=== PATIENT | female | born 1995 | race African-American/Black ===

== ENCOUNTER 2017-11-14 15:41 | Emergency (ER) | payer OTHER ==
[~2017-11-14] VITALS: Ht 152.4 cm; Wt 72.6 kg
[2017-11-14] MEDS ORDERED: DIPHENHYDRAMINE HCL INJ 50 MG/ML VIAL IM ONE (16:00)
[2017-11-14] MEDS ORDERED: METOCLOPRAMIDE HCL 10 MG/2ML VIAL IM ONE (16:00)
[2017-11-14] MEDS ORDERED: KETOROLAC TROMETHAMINE 30 MG/ML VIAL IM STA (16:00)
[2017-11-14 17:05] VITALS: BP 109/84
== END 2017-11-14 17:36 | disposition home or self-care (01) ==
LOC: FSED 15:41
DX: G43.909 Migraine, unspecified, not intractable, without status migrainosus (principal)
CPT/HCPCS: 99282; J1200; J1885; J2765

== ENCOUNTER 2018-10-11 19:48 | Emergency (ER) | payer OTHER ==
[~2018-10-11] VITALS: Ht 154.9 cm; Wt 75.3 kg
--- OUTSIDE RECORDS SUMMARY | 2018-10-11 19:50 | XMS REPORT | Clinical Summary ---
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 Nitrofurantoin Other (See 02/08/2014 Monohyd/M-Cryst Comments) Nsaids (Non-Steroidal Anaphylaxis High 05/31/2016 Anti-Inflammatory Drug) Medications End Date Status Medication Sig Dispensed Refills Start Date Active albuterol sulfate Take 2.5 mg 0 (PROVENTIL) 2.5 mg/0.5 mL by solution for nebulization nebulization as needed for wheezing. Active albuterol (PROAIR Inhale 2 0 HFA,PROVENTIL puffs every 6 HFA,VENTOLIN HFA) 90 (six) hours mcg/actuation inhaler as needed for wheezing. Active cefuroxime (CEFTIN) 500 Take 500 mg 0 MG tablet by mouth 2 8 (two) times a day. 10/26/2017 predniSONE (DELTASONE) 10 Take 4 20 tablet 0 mg tablet tablets (40 8 mg total) by mouth daily for 5 doses. 11/20/2017 albuterol (PROAIR HFA) 90 Inhale 2 18 g 11 mcg/actuation inhaler puffs every 6 8 (six) hours as needed for wheezing for up to 30 days. 12/27/2017 traMADol (ULTRAM) 50 mg Take 1 tablet 30 tablet 0 tablet (50 mg total) 8 by mouth every 6 (six) hours as needed for moderate pain for up to 5 days. 04/04/2018 fluconazole (DIFLUCAN) Take 1 tablet 2 tablet 0 200 MG tablet (200 mg 8 total) by mouth every third day for 2 doses. Active Problems Not on file Encounters Care Team Description Date Type Specialty Rehrer, aMrcio Armijo DO Yeast vaginitis (Primary Dx) 03/31/2018 Emergency Emergency Medicine Luiz Baltazar MD Left lower quadrant pain (Primary Dx); Cyst of left ovary 12/21/2017 Emergency Emergency Medicine - 12/22/2017 Luiz Baltazar MD Streptococcal pharyngitis (Primary Dx); Fever and chills; Cough 10/21/2017 Emergency Emergency Medicine after 10/10/2017 Social History Date Tobacco Use Types Packs/Day Years Used Never Smoker Smokeless Tobacco: Never Used Alcohol Use Drinks/Week oz/Week Comments Yes occassionally Sex Assigned at Date Recorded Not on file Industry Job Start Date Occupation Not on file Not on file Not on file Travel End Travel History Travel Start No recent travel history available. Last Filed Vital Signs Time Taken Vital Sign Reading 03/31/2018 1:10 PM VARITYPE OPERATOR Blood Pressure 128/80 03/31/2018 1:10 PM VARITYPE OPERATOR Pulse 90 03/31/2018 1:10 PM VARITYPE OPERATOR Temperature 37.2 C (98.9 F) 03/31/2018 1:10 PM VARITYPE OPERATOR Respiratory Rate 18 03/31/2018 1:10 PM VARITYPE OPERATOR Oxygen Saturation 98% - Inhaled Oxygen - Concentration 03/31/2018 1:18 PM VARITYPE OPERATOR Weight 70.3 kg (155 lb) 03/31/2018 1:18 PM VARITYPE OPERATOR Height 152.4 cm (5') 03/31/2018 1:18 PM VARITYPE OPERATOR Body Mass Index 30.27 Plan of Treatment Health Maintenance Due Date Last Done Comments CHLAMYDIA SCREENING 2010 INFLUENZA VACCINE 11/16/2018 03/23/2013 Procedures Comments Procedure Name Priority Date/Time Associated Diagnosis HCG QUALITATIVE, URINE STAT 03/31/2018 SCREEN 1:33 PM VARITYPE OPERATOR URINALYSIS STAT 03/31/2018 1:[address] RENAL STONE PROTOCOL STAT 12/22/2017 1:06 AM CDT US PELVIC TRANSABDOMINAL STAT 12/22/2017 12:05 AM CDT US PELVIC TRANSVAGINAL STAT 12/22/2017 12:05 AM CDT ZZESTIMATED GFR STAT 12/21/2017 10:49 PM CDT COMPREHENSIVE METABOLIC STAT 12/21/2017 PANEL 10:49 PM CDT HC COMPLETE BLD COUNT STAT 12/21/2017 W/AUTO DIFF 10:49 PM CDT HCG QUALITATIVE, URINE STAT 12/21/2017 SCREEN 10:30 PM CDT URINALYSIS STAT 12/21/2017 10:30 PM CDT RESPIRATORY PATHOGEN Routine 10/21/2017 PANEL 7:50 PM CDT GROUP A STREP, RAPID Routine 10/21/2017 ANTIGEN 7:50 PM CDT INFLUENZA ANTIGEN Routine 10/21/2017 7:50 PM CDT XR CHEST 2 VW STAT 10/21/2017 7:48 PM CDT after 10/10/2017 Results * Urinalysis (03/31/2018 1:33 PM VARITYPE OPERATOR) Only the most recent of 2 results within the time period is included. Glucose, UA Negative Negative [facility] Bilirubin, UA Negative Negative [facility] Ketones, UA Trace (A) Negative [facility] Specific 1.020 1.001 - 1.035 [place] gravity, UA [facility] Blood, UA Negative Negative [facility] pH, UA 7.0 5.0 - 8.5 [facility] Protein, UA Negative Negative [facility] Urobilinogen, <2.0 <2.0 [place] UA [facility] Nitrite, UA Negative Negative [facility] Leukocyte Negative Negative [place] esterase, UA [facility] Color, UA Yellow [facility] Appearance, UA Hazy [facility] Specimen Urine Performing Organization Address City/State/[place] [address] PATHOLOGY AND GENOMIC MEDICINE[address] * hCG qualitative, urine screen (03/31/2018 1:33 PM VARITYPE OPERATOR) Only the most recent of 2 results within the time period is included. hCG Negative [place] qualitative, Comment: [facility] urine Sensitivity of HCG test: 25 [place] mIU/mL EMERGENCY CARE Negative test results in CENTER patients suspected to be should be retested with a sample obtained 48-72 hours later, or by performing a quantitative assay. Specimen Urine Performing Organization Address City/[facility] Hospital[facility] [place] [address] PATHOLOGY AND GENOMIC MEDICINE[address] * CT Renal Stone Protocol (12/22/2017 1:06 AM CDT) Specimen Narrative Performed At EXAM: CT RENAL STONE PROTOCOL [facility] CLINICAL HISTORY:Abd painunspecified TECHNIQUE: Multidetector CT of the abdomen and pelvis was performed without intravenous administration of iodinated contrast with multiplanar reformats. CT scans are performed using radiation dose reduction techniques (iterative reconstruction and/or automated exposure control). Technical factors are evaluated and adjusted to ensure appropriate moderation of exposure. Automated dose management technology is applied to adjust radiation exposure while achieving a diagnostic quality image. COMPARISON:None FINDINGS: Evaluation of the parenchyma, lymph nodes, and the vessels is limited without intravenous contrast. Lung bases: Dependent atelectasis. Otherwise unremarkable. Liver:No evidence for suspicious focal hepatic lesion. Gallbladder and biliary:Unremarkable. Pancreas:No focal pancreatic lesion identified. No pancreatic duct dilatation. Spleen: Unremarkable. Gastrointestinal:Stomach is unremarkable in appearance. Large and small bowel are normal in caliber. Appendix is visualized and appears normal. Peritoneum:No ascites or free air. Adrenals: Unremarkable. Kidneys and ureters:There is no evidence for large irregular renal mass, obstructing calculi, hydronephrosis, or hydroureter. Urinary bladder: Unremarkable. Reproductive organs:Uterus is unremarkable in appearance per CT. Bilateral ovarian cysts are identified, larger on the left (for example question very measuring 3.6 cm in transverse dimension on axial image 128, series 2). Lymph nodes:No enlarged lymph nodes in the abdomen or pelvis. Vascular:Unremarkable, though evaluation of vessel lumens is limited due to lack of IV contrast. Abdominal wall:Unremarkable. Bones:No acute osseous abnormality identified. IMPRESSION: 1.No CT evidence for acute abdominopelvic process. 2.Bilateral ovarian cysts are identified, larger on the left (for example question very measuring 3.6 cm in transverse dimension on axial image 128, series 2). Ultrasound of the pelvis may be obtained for further evaluation if clinically indicated. [id number] Procedure Note [facility], Radiology Results Incoming - 12/22/2017 1:18 AM CDT EXAM: CT RENAL STONE PROTOCOL CLINICAL HISTORY: Abd pain unspecified TECHNIQUE: Multidetector CT of the abdomen and pelvis was performed without intravenous administration of iodinated contrast with multiplanar reformats. CT scans are performed using radiation dose reduction techniques (iterative reconstruction and/or automated exposure control). Technical factors are evaluated and adjusted to ensure appropriate moderation of exposure. Automated dose management technology is applied to adjust radiation exposure while achieving a diagnostic quality image. COMPARISON: None FINDINGS: Evaluation of the parenchyma, lymph nodes, and the vessels is limited without intravenous contrast. Lung bases: Dependent atelectasis. Otherwise unremarkable. Liver: No evidence for suspicious focal hepatic lesion. Gallbladder and biliary: Unremarkable. Pancreas: No focal pancreatic lesion identified. No pancreatic duct dilatation. Spleen: Unremarkable. Gastrointestinal: Stomach is unremarkable in appearance. Large and small bowel are normal in caliber. Appendix is visualized and appears normal. Peritoneum: No ascites or free air. Adrenals: Unremarkable. Kidneys and ureters: There is no evidence for large irregular renal mass, obstructing calculi, hydronephrosis, or hydroureter. Urinary bladder: Unremarkable. Reproductive organs: Uterus is unremarkable in appearance per CT. Bilateral ovarian cysts are identified, larger on the left (for example question very measuring 3.6 cm in transverse dimension on axial image 128, series 2). Lymph nodes: No enlarged lymph nodes in the abdomen or pelvis. Vascular: Unremarkable, though evaluation of vessel lumens is limited due to lack of IV contrast. Abdominal wall: Unremarkable. Bones: No acute osseous abnormality identified. IMPRESSION: 1. No CT evidence for acute abdominopelvic process. 2. Bilateral ovarian cysts are identified, larger on the left (for example question very measuring 3.6 cm in transverse dimension on axial image 128, series 2). Ultrasound of the pelvis may be obtained for further evaluation if clinically indicated. [id number] Performing Organization Address City/State/Zipcode Phone Number [facility] [address] [place] [address] * US Pelvic Transabdominal (12/22/2017 12:05 AM CDT) Specimen Narrative Performed At Examination:US PELVIC TRANSABDOMINAL, US PELVIC TRANSVAGINAL [facility] Clinical History: Pelvic painneg HCGgyn Comparison: None. Findings: Transabdominal and transvaginal pelvic ultrasound was performed. The uterus measures 8.0 x 3.8 x 4.5 cm Endometrial stripe measure 1.1 cm. No fibroid is seen. The right ovary measures 2.5 x 1.2 x 1.6 cm. Left ovary measured 4.5 x 3.3 x 4.0 cm. Left ovary demonstrate a cystic structure measuring 2.7 x 2.3 x 2.1 cm. It has septations within it. There is normal vascular flow seen in both ovaries. Nonspecific free fluid is noted in the pelvis. IMPRESSION: 1. No evidence of torsion. 2. Left ovarian cyst with septation. 3. Nonspecific free fluid in the pelvis. 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 Findings: Transabdominal and transvaginal pelvic ultrasound was performed. The uterus measures 8.0 x 3.8 x 4.5 cm Endometrial stripe measure 1.1 cm. No fibroid is seen. The right ovary measures 2.5 x 1.2 x 1.6 cm. Left ovary measured 4.5 x 3.3 x 4.0 cm. Left ovary demonstrate a cystic structure measuring 2.7 x 2.3 x 2.1 cm. It has septations within it. There is normal vascular flow seen in both ovaries. Nonspecific free fluid is noted in the pelvis. IMPRESSION: 1. No evidence of torsion. 2. Left ovarian cyst with septation. 3. Nonspecific free fluid in the pelvis. [id number] Performing Organization Address City/State/Zipcode Phone Number [facility] [address] [place] [address] * US Pelvic Transvaginal (12/22/2017 12:05 AM CDT) Specimen Narrative Performed At Examination:US PELVIC TRANSABDOMINAL, US PELVIC TRANSVAGINAL [facility] Clinical History: Pelvic painneg HCGgyn Comparison: None. Findings: Transabdominal and transvaginal pelvic ultrasound was performed. The uterus measures 8.0 x 3.8 x 4.5 cm Endometrial stripe measure 1.1 cm. No fibroid is seen. The right ovary measures 2.5 x 1.2 x 1.6 cm. Left ovary measured 4.5 x 3.3 x 4.0 cm. Left ovary demonstrate a cystic structure measuring 2.7 x 2.3 x 2.1 cm. It has septations within it. There is normal vascular flow seen in both ovaries. Nonspecific free fluid is noted in the pelvis. IMPRESSION: 1. No evidence of torsion. 2. Left ovarian cyst with septation. 3. Nonspecific free fluid in the pelvis. 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 Findings: Transabdominal and transvaginal pelvic ultrasound was performed. The uterus measures 8.0 x 3.8 x 4.5 cm Endometrial stripe measure 1.1 cm. No fibroid is seen. The right ovary measures 2.5 x 1.2 x 1.6 cm. Left ovary measured 4.5 x 3.3 x 4.0 cm. Left ovary demonstrate a cystic structure measuring 2.7 x 2.3 x 2.1 cm. It has septations within it. There is normal vascular flow seen in both ovaries. Nonspecific free fluid is noted in the pelvis. IMPRESSION: 1. No evidence of torsion. 2. Left ovarian cyst with septation. 3. Nonspecific free fluid in the pelvis. [id number] Performing Organization Address City/State/Zipcode Phone Number [facility] [address] [place] [address] * Estimated GFR (12/21/2017 10:49 PM CDT) [facility] GFR Non Af Amer 61 mL/min/1.73 m2 DEPARTMENT OF PATHOLOGY AND GENOMIC MEDICINE, [facility] GFR Af Amer 74 mL/min/1.73 m2 DEPARTMENT Comment: OF PATHOLOGY Chronic kidney disease: <60 AND GENOMIC mL/min/1.73m2 MEDICINE, Kidney failure: <15 [place] mL/min/1.73m2 EMERGENCY CARE The estimated GFR is CENTER calculated from the IDMS-traceable Modification of Diet in Renal Disease Equation. The accuracy of the calculation is poor when the creatinine is normal. Calculated values >90 mL/min/1.73m2 are not reported. This equation has not been validated in children (<18 years), women, the elderly (>70 years), or ethnic groups other than Caucasians and Americans. Specimen Plasma specimen Performing Organization Address City/[facility]/Zipcode Phone Number [address] [address] [facility] * CBC with platelet and differential (12/21/2017 10:49 PM CDT) [facility] WBC 13.64 (H) 4.50 - 11.00 k/uL [facility] DEPARTMENT OF PATHOLOGY AND GENOMIC MEDICINE RBC 4.72 4.20 - 5.50 m/uL [facility] DEPARTMENT OF PATHOLOGY AND GENOMIC MEDICINE HGB 13.3 12.0 - 16.0 g/dL [facility] DEPARTMENT OF PATHOLOGY AND GENOMIC MEDICINE HCT 40.3 37.0 - 47.0 % [facility] DEPARTMENT OF PATHOLOGY AND GENOMIC MEDICINE MCV 85.4 82.0 - 100.0 fL [facility] DEPARTMENT OF PATHOLOGY AND GENOMIC MEDICINE MCH 28.2 27.0 - 34.0 pg [facility] DEPARTMENT OF PATHOLOGY AND GENOMIC MEDICINE MCHC 33.0 31.0 - 37.0 g/dL [facility] DEPARTMENT OF PATHOLOGY AND GENOMIC MEDICINE RDW - SD 40.3 37.0 - 55.0 fL [facility] DEPARTMENT OF PATHOLOGY AND GENOMIC MEDICINE MPV 11.3 8.8 - 13.2 fL [facility] DEPARTMENT OF PATHOLOGY AND GENOMIC MEDICINE Platelet count 215 150 - 400 k/uL [facility] DEPARTMENT OF PATHOLOGY AND GENOMIC MEDICINE Neutrophils 62.8 39.0 - 69.0 % [facility] DEPARTMENT OF PATHOLOGY AND GENOMIC MEDICINE Lymphocytes 26.4 25.0 - 45.0 % [facility] DEPARTMENT OF PATHOLOGY AND GENOMIC MEDICINE Monocytes 7.8 0.0 - 10.0 % [facility] DEPARTMENT OF PATHOLOGY AND GENOMIC MEDICINE Eosinophils 2.5 0.0 - 5.0 % [facility] DEPARTMENT OF PATHOLOGY AND GENOMIC MEDICINE Basophils 0.3 0.0 - 1.0 % [facility] DEPARTMENT OF PATHOLOGY AND GENOMIC MEDICINE Specimen Blood Performing Organization Address City/State/Zipcode Phone Number [facility] DEPARTMENT [address] [address] PATHOLOGY AND GENOMIC MEDICINE * Comprehensive metabolic panel (12/21/2017 10:49 PM CDT) Sodium 139 128 - 145 mEq/L [facility] Potassium 4.0 3.6 - 5.1 mEq/L [facility] CO2 28 18 - 33 mEq/L [facility] Chloride 104 98 - 108 mEq/L [facility] Glucose 90 73 - 118 mg/dL [facility] Calcium 9.4 8.0 - 10.3 mg/dL [facility] BUN 12 7 - 22 mg/dL [facility] Creatinine 1.1 0.6 - 1.2 mg/dL [facility] Alkaline 48 42 - 141 U/L DEPARTMENT phosphatase [facility] ALT 21 10 - 47 U/L [facility] AST 30 11 - 38 U/L [facility] Total bilirubin 0.8 0.2 - 1.6 mg/dL [facility] Albumin 3.9 3.3 - 5.5 g/dL [facility] Protein 7.2 6.4 - 8.1 g/dL DEPARTMENT OF PATHOLOGY AND GENOMIC MEDICINE, [facility] Anion gap 7@ANIO 7 - 15 mEq/L [facility] A/G ratio 1.2 0.7 - 3.8 [facility] Specimen Plasma specimen Performing Organization Address City/State/Zipcode Phone [place] [phone] [place] [phone] [facility] * Respiratory pathogen panel (10/21/2017 7:50 PM CDT) Pathologist [facility] Respiratory Negative for all pathogens [facility] DEPARTMENT pathogen panel tested: OF PATHOLOGY Negative for Adenovirus AND GENOMIC Negative for Coronavirus HKU1 MEDICINE Negative for Coronavirus NL63 Negative for Coronavirus 229E Negative for Coronavirus OC43 Negative for Human Metapneumovirus Negative for Rhinovirus/Enterovirus Negative for Influenza A Negative for Influenza A/H1 Negative for Influenza A/H3 Negative for Influenza A/H1-2009 Negative for Influenza B Negative for Parainfluenza Virus 1 Negative for Parainfluenza Virus 2 Negative for Parainfluenza Virus 3 Negative for Parainfluenza Virus 4 Negative for Respiratory Syncytial Virus Negative for Bordetella pertussis Negative for Chlamydophila pneumoniae Negative for Mycoplasma pneumoniae This real-time PCR assay detects the presence of nucleic acids (RNA or DNA) for the respiratory pathogens listed. A result of "Not-detected" does not exclude the possibility of the presence of one or more pathogens at concentrations less than the detectable limits of the assay. Comment: Specimen Information Specimen Source: Nares Specimen Site: Left Specimen Nares - Left Performing Organization Address City/State/Zipcode Phone Number [facility] DEPARTMENT OF [address] [place] [phone] PATHOLOGY AND [facility] MEDICINE * Group A strep, rapid antigen (10/21/2017 7:50 PM CDT) [facility] Group A strep, Positive for Group A Strep DEPARTMENT rapid antigen antigen. (A) OF PATHOLOGY result Comment: AND GENOMIC Specimen Information MEDICINE, Specimen Source: Throat [place] Specimen Site: Not otherwise EMERGENCY CARE specified CENTER Specimen Throat - Not otherwise specified Performing Organization Address City/State/Zipcode Phone Number [place] [phone] [place] [phone] [facility] * Influenza antigen (10/21/2017 7:50 PM CDT) Influenza Negative for Influenza A/B DEPARTMENT antigen antigen. OF PATHOLOGY Comment: AND GENOMIC Specimen Information MEDICINE, Specimen Source: [place] Specimen Site: Left EMERGENCY CARE CENTER Specimen Nares - Left Performing Organization Address City/State/[place] Number [place] [address] [place] [address] PATHOLOGY AND GENOMIC MEDICINE, [place] EM[facility] * XR Chest 2 Vw (10/21/2017 7:48 PM CDT) Specimen Narrative Performed At Study:XR CHEST 2 VW [facility] History: Cough COMPARISON: None. IMPRESSION: 2 views of the chest.There is no focal consolidation, pleural effusion or pneumothorax.Cardiac silhouette is normal.Visualized osseous structures arewithout acute abnormality. [id number] Procedure Note Hm Interface, Radiology Results Incoming - 10/21/2017 7:54 PM CDT Study:XR CHEST 2 VW History: Cough COMPARISON: None. IMPRESSION: 2 views of the chest. There is no focal consolidation, pleural effusion or pneumothorax. Cardiac silhouette is normal. Visualized osseous structures are without acute abnormality. [id number] Performing Organization Address City/State/Zipcode Phone Number [facility] [address] [place] [address] after 10/10/2017 Insurance Type Payer Benefit Subscriber ID Effective Phone Address Plan / Dates Group Exchange [employer] EXCHANGE CAR[employer]HO xxxxxxxxxx 2017-P [employer] resent E EXCHANGE Exchange [employer] EXCHANGE CAR[employer] xxxxxxxxxx 2016-P [employer] resent E EXCHANGE Advance Directives Patient has advance care planning documents on file. For more information, pleas e contact: Carlos Bradshaw [address] [place] [address]
--- OUTSIDE RECORDS SUMMARY | 2018-10-11 19:51 | XMS REPORT | Clinical Summary ---
Author Author KATHY [facility] Address Unknown Phone Unavailable Care Team Providers Care Cna Hha Name Role Phone Sharpless PCP Allergies Comments Active Allergy Reactions Severity Noted Date Iodine And Iodide Anaphylaxis High 03/21/2013 Containing Products States won't take it because she read that it had something she is allergic to. Nitrofurantoin Other (See 02/08/2014 Monohyd/M-Cryst Comments) Nsaids (Non-Steroidal Anaphylaxis High 03/21/2013 Anti-Inflammatory Drug) Medications End Date Status Medication Sig Dispensed Refills Start Date 10/17/2017 ciprofloxacin HCl (CIPRO) Take 1 tablet 14 tablet 0 500 MG tablet (500 mg 8 total) by mouth 2 (two) times daily for 7 days. Active Problems Not on file Encounters Care Team Description Date Type Specialty Brandy Singh MD Acute UTI (urinary tract infection) (Primary Dx) 10/10/2017 Emergency Emergency Medicine after 10/10/2017 Social History Date Tobacco Use Types Packs/Day Years Used Never Smoker Smokeless Tobacco: Never Used Alcohol Use Drinks/Week oz/Week Comments Yes socially Sex Assigned at Date Recorded Not on file Industry Job Start Date Occupation Not on file Not on file Not on file Travel End Travel History Travel Start No recent travel history available. Last Filed Vital Signs Time Taken Vital Sign Reading 10/10/2017 7:41 PM CDT Blood Pressure 125/66 10/10/2017 7:41 PM CDT Pulse 85 10/10/2017 5:35 PM CDT Temperature 37.1 C (98.7 F) 10/10/2017 7:41 PM CDT Respiratory Rate 18 10/10/2017 7:41 PM CDT Oxygen Saturation 99% - Inhaled Oxygen - Concentration 10/10/2017 5:35 PM CDT Weight 76.7 kg (169 lb) 10/10/2017 5:35 PM CDT Height 154.9 cm (5' 1") 10/10/2017 5:35 PM CDT Body Mass Index 31.93 Plan of Treatment Not on file Procedures Comments Procedure Name Priority Date/Time Associated Diagnosis SCREEN, URINE STAT 10/10/2017 6:05 PM CDT URINALYSIS W/ REFLEX STAT 10/10/2017 URINE CULTURE 6:05 PM CDT after 10/10/2017 Results * Urinalysis w/Microscopic + Reflex to Culture (10/10/2017 6:05 PM CDT) Color, UA Yellow [facility] Clarity, UA Cloudy [facility] Specific [place], UA 1.020 1.001 - 1.[address] [facility] pH, UA 7.5 5.0 - 8.[address] [facility] Protein, UA Trace (A) Negative [facility] Glucose, UA Negative Negative [facility] Ketones, UA Negative Negative [facility] Bilirubin, UA Negative Negative [facility] Blood, UA Negative Negative [facility] Nitrite, UA Negative Negative [facility] Leukocytes, UA Trace (A) Negative [facility] Urobilinogen, UA 1.0 0.2 - 1.0 mg/dL [facility] Bacteria, UA Moderate [facility] Amorphous Crystals Few [facility] RBC, UA <5 /HPF [facility] WBC, UA 5-10 /HPF [facility] SQUAMOUS EPITHELIAL 10-20 /HPF [facility] Specimen Source [facility] Specimen Urine Narrative Performed At Less than 10 cc's of specimen [facility] Performing Organization Address City/[facility]/Zipcode Phone Number [address] [phone] [facility] * screen, urine (10/10/2017 6:05 PM CDT) Preg Test, Ur Negative [facility] Specimen Urine Performing Organization Address City/[facility]/Zipcode Phone Number [address] [phone] [facility] after 10/10/2017
[2018-10-11] MEDS ORDERED: KETOROLAC TROMETHAMINE 60 MG/2 ML VIAL IM ONE (22:45)
[2018-10-11] MEDS ORDERED: ACETAMINOPHEN 325 MG TAB ONE (22:53)
[2018-10-11] MEDS ORDERED: ACETAMINOPHEN 325 MG TAB PO ONE (23:00)
[2018-10-11 23:04] VITALS: BP 136/72
== END 2018-10-11 23:08 | disposition home or self-care (01) ==
LOC: FSED 19:48
DX: R50.9 Fever, unspecified (principal); K04.7 Periapical abscess without sinus; J45.909 Unspecified asthma, uncomplicated
CPT/HCPCS: 81003; 81025; 99283

== ENCOUNTER 2018-12-21 18:14 | Emergency (ER) | payer SELFPAY ==
[~2018-12-21] VITALS: Ht 152.4 cm; Wt 74.2 kg
--- OUTSIDE RECORDS SUMMARY | 2018-12-21 18:16 | XMS REPORT | Clinical Summary ---
Author Author KATHY [facility] Address Unknown Phone Unavailable Care Team Providers Care Math And Physics Instructor Name Role Phone Sharpless PCP Allergies Comments Active Allergy Reactions Severity Noted Date Iodine And Iodide Anaphylaxis High 03/21/2013 Containing Products States won't take it because she read that it had something she is allergic to. Nitrofurantoin Other (See 02/08/2014 Monohyd/M-Cryst Comments) Nsaids (Non-Steroidal Anaphylaxis High 03/21/2013 Anti-Inflammatory Drug) Medications No known medications Active Problems Not on file Social History Date Tobacco Use Types Packs/Day Years Used Never Smoker Smokeless Tobacco: Never Used Alcohol Use Drinks/Week oz/Week Comments Yes socially Sex Assigned at Date Recorded Not on file Industry Job Start Date Occupation Not on file Not on file Not on file Travel End Travel History Travel Start No recent travel history available. Last Filed Vital Signs Not on file Plan of Treatment Not on file Results Not on fileafter 12/20/2017
--- OUTSIDE RECORDS SUMMARY | 2018-12-21 18:16 | XMS REPORT | Clinical Summary ---
Author Author [facility] Address Unknown Phone Unavailable Care Team Providers Care Casing Crew Pusher Name Role Phone Isaias Olson MD PCP Allergies Comments Active Allergy Reactions Severity Noted Date [place] And Derivatives Other (See 11/14/2017 Comments) "throat [...] mouth 2 8 (two) times a day. 12/27/2017 traMADol (ULTRAM) 50 mg Take 1 [...] Care Team Description Date Type Specialty Rehrer, Marcio Armijo DO Yeast vaginitis (Primary Dx) 03/31/2018 Emergency Emergency Medicine Luiz Baltazar MD Left lower quadrant pain (Primary Dx); Cyst of left ovary 12/21/2017 Emergency Emergency Medicine - 12/22/2017 after 12/20/2017 Social History Date Tobacco Use Types Packs/Day Years Used Never Smoker Smokeless Tobacco: Never Used Drinks/Week oz/Week Comments Alcohol Use occassionally Yes Sex Assigned at Date Recorded Not on file Industry Job Start Date Occupation Not on file Not on file Not on file Travel End Travel History Travel Start No recent travel history available. Last Filed Vital Signs Reading Time Taken Comments Vital Sign 128/80 03/31/2018 1:10 PM AREA MANAGER Blood Pressure 90 03/31/2018 1:10 PM AREA MANAGER Pulse 37.2 C (98.9 F) 03/31/2018 1:10 PM AREA MANAGER Temperature 18 03/31/2018 1:10 PM AREA MANAGER Respiratory Rate 98% 03/31/2018 1:10 PM AREA MANAGER Oxygen Saturation - - Inhaled Oxygen Concentration 70.3 kg (155 lb) 03/31/2018 1:18 PM AREA MANAGER Weight 152.4 cm (5') 03/31/2018 1:18 PM AREA MANAGER Height 30.27 03/31/2018 1:18 PM AREA MANAGER Body Mass Index Plan of Treatment Health Maintenance Due Date Last Done Comments CHLAMYDIA SCREENING 2010 CERVICAL CANCER SCREENING 2015 INFLUENZA VACCINE 11/16/2018 03/23/2013 Procedures Comments Procedure Name Priority Date/Time Associated Diagnosis HCG QUALITATIVE, URINE STAT 03/31/2018 SCREEN 1:33 PM AREA MANAGER URINALYSIS STAT 03/31/2018 1:[address] RENAL STONE PROTOCOL STAT 12/22/2017 1:06 [...] CDT URINALYSIS STAT 12/21/2017 10:30 PM CDT after 12/20/2017 Results * Urinalysis (03/31/2018 1:33 PM AREA MANAGER) Only the most recent of 2 results within the time period is included. Glucose, UA Negative Negative [facility] Bilirubin, UA Negative Negative [facility] Ketones, UA Trace (A) Negative [facility] Specific 1.020 1.001 - 1.035 [place] gravity, UA [facility] Blood, UA Negative Negative [facility] pH, UA 7.0 5.0 - 8.5 [facility] Protein, UA Negative Negative [facility] Urobilinogen, <2.0 <2.0 [facility] Nitrite, UA Negative Negative [facility] Leukocyte Negative Negative [place] esterase, UA [facility] Color, UA Yellow [facility] Appearance, UA Hazy [facility] Specimen Urine Performing Organization Address City/[facility]/[place] [address] PATHOLOGY AND GENOMIC MEDICINE, [address] * hCG qualitative, urine screen (03/31/2018 1:33 PM AREA MANAGER) Only the most recent of 2 results within the time period is included. hCG Negative [place] qualitative, Comment: [facility] urine Sensitivity of HCG test: 25 [place] mIU/mL EMERGENCY CARE Negative test results in CENTER patients suspected to be should be retested with a sample obtained 48-72 hours later, or by performing a quantitative assay. Specimen Urine Performing Organization Address City/[facility]/Zipcode Phone Number DEPARTMENT OF [address] [place] [phone] PATHOLOGY AND GENOMIC MEDICINE, [facility] [place]IL [place]E [address] [place] [address] [facility] * CT Renal Stone Protocol (12/22/2017 1:06 [...] obtained for further evaluation if clinically indicated. [facility]-[id number] Procedure Note Interface, Radiology Results Incoming - 12/22/2017 1:18 AM [...] obtained for further evaluation if clinically indicated. [facility]-[id number] Performing Organization Address City/State/Zipcode Phone Number [facility] [address] [place] [address] * US Pelvic Transabdominal (12/22/2017 12:05 AM CDT) Specimen Narrative Performed At Examination:US PELVIC TRANSABDOMINAL, US PELVIC TRANSVAGINAL [facility] Clinical History: Pelvic painneg HCGgyn Comparison: None. [...] 3. Nonspecific free fluid in the pelvis. 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 Findings: Transabdominal and transvaginal pelvic [...] 3. Nonspecific free fluid in the pelvis. [facility]-[id number] Performing Organization Address City/State/Zipcode Phone Number [facility] [address] [place] [address] * US Pelvic Transvaginal (12/22/2017 12:05 AM CDT) Specimen Narrative Performed At Examination:US PELVIC TRANSABDOMINAL, US PELVIC TRANSVAGINAL [facility] Clinical History: Pelvic painneg HCGgyn Comparison: None. [...] 3. Nonspecific free fluid in the pelvis. 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 Findings: Transabdominal and transvaginal pelvic [...] 3. Nonspecific free fluid in the pelvis. [facility]-[id number] Performing Organization Address City/[facility]/Zipcode Phone Number [facility] [address] [place] [address] * Estimated GFR (12/21/2017 10:49 PM CDT) GFR Non Af Amer 61 mL/min/1.73 m2 DEPARTMENT OF PATHOLOGY AND GENOMIC MEDICINE, [facility] GFR Af Amer 74 mL/min/1.73 m2 DEPARTMENT Comment: OF PATHOLOGY Chronic kidney disease: <60 AND GENOMIC mL/min/1.73m2 MEDICINE, Kidney failure: <15 [place] mL/min/1.73m2 EMERGENCY CARE The estimated GFR is [...] Americans. Specimen Plasma specimen Performing Organization Address City/State/Zipcode Phone Number [facility] [address] [place] [address] [facility] * CBC with platelet and differential (12/21/2017 10:49 PM CDT) Pathologist [facility] WBC 13.64 (H) 4.50 - 11.00 k/uL [facility] DEPARTMENT OF PATHOLOGY AND GENOMIC MEDICINE RBC 4.72 4.20 - 5.50 m/uL [facility] DEPARTMENT OF PATHOLOGY AND GENOMIC MEDICINE HGB 13.3 12.0 - 16.0 g/dL [facility] DEPARTMENT OF PATHOLOGY AND GENOMIC MEDICINE HCT 40.3 37.0 - 47.0 % [facility] DEPARTMENT OF PATHOLOGY AND GENOMIC MEDICINE MCV 85.4 82.0 - 100.0 fL [facility] DEPARTMENT OF PATHOLOGY AND GENOMIC MEDICINE MCH 28.2 27.0 - 34.0 pg [facility] DEPARTMENT OF PATHOLOGY AND GENOMIC MEDICINE MCHC 33.0 31.0 - 37.0 g/dL [facility] DEPARTMENT OF PATHOLOGY AND GENOMIC MEDICINE RDW - SD 40.3 37.0 - 55.0 fL [facility] DEPARTMENT OF PATHOLOGY AND GENOMIC MEDICINE MPV 11.3 8.8 - 13.2 fL [facility] DEPARTMENT OF PATHOLOGY AND GENOMIC MEDICINE Platelet count 215 150 - 400 k/uL [facility] DEPARTMENT OF PATHOLOGY AND GENOMIC MEDICINE Neutrophils 62.8 39.0 - 69.0 % [facility] DEPARTMENT OF PATHOLOGY AND GENOMIC MEDICINE Lymphocytes 26.4 25.0 - 45.0 % [facility] DEPARTMENT OF PATHOLOGY AND GENOMIC MEDICINE Monocytes 7.8 0.0 - 10.0 % [facility] DEPARTMENT OF PATHOLOGY AND GENOMIC MEDICINE Eosinophils 2.5 0.0 - 5.0 % [facility] DEPARTMENT OF PATHOLOGY AND GENOMIC MEDICINE Basophils 0.3 0.0 - 1.0 % [facility] DEPARTMENT OF PATHOLOGY AND GENOMIC MEDICINE Specimen Blood Performing Organization Address City/State/Zipcode Phone Number [facility] DEPARTMENT OF [address] [place] [address] PATHOLOGY AND GENOMIC MEDICINE * Comprehensive metabolic panel (12/21/2017 10:49 PM CDT) Sodium 139 128 - 145 mEq/L [facility] Potassium 4.0 3.6 - 5.1 mEq/L [facility] CO2 28 18 - 33 mEq/L [facility] Chloride 104 98 - 108 mEq/L [facility] Glucose 90 73 - 118 mg/dL [facility] Calcium 9.4 8.0 - 10.3 mg/dL [facility] BUN 12 7 - 22 mg/dL [facility] Creatinine 1.1 0.6 - 1.2 mg/dL [facility] Alkaline 48 42 - 141 U/L DEPARTMENT phosphatase OF PATH[facility] ALT 21 10 - 47 U/L [facility] AST 30 11 - 38 U/L [facility] Total bilirubin 0.8 0.2 - 1.6 mg/dL [facility] Albumin 3.9 3.3 - 5.5 g/dL [facility] Protein 7.2 6.4 - 8.1 g/dL [facility] Anion gap 7@ANIO 7 - 15 mEq/L [facility] A/G ratio 1.2 0.7 - 3.8 [facility] Specimen Plasma specimen Performing Organization Address [facility] Phone Number [address] [address] [facility] after 12/20/2017 Insurance Type Payer Benefit Subscriber ID Effective Phone Address Plan / Dates Group Exchange [employer] EXCHANGE CAR[employer]HO xxxxxxxxxx [id number] [employer] resent E EXCHANGE Exchange [employer] EXCHANGE CAR[employer] xxxxxxxxxx 2016-P [employer] resent E EXCHANGE Advance Directives For more information, please contact: [phone] Patient Field Installer Explanation Type Date Recorded Advance Directives, Living Will and Medical Power of E [employer] Merchandising Coordinator
--- NOTE | 2018-12-21 18:59 | NUR ---
Report to JONNATHAN Yeh
--- NOTE | 2018-12-21 19:26 | Diagnostic Imaging Report ---
Examination: Single AP view of the chest. COMPARISON: None. INDICATION: Chest pain DISCUSSION: Lines/tubes: None. Lungs: The lungs are well inflated and clear. No pneumonia or pulmonary edema. Pleura: No pleural effusion or pneumothorax. Heart and mediastinum: The heart and the mediastinum are unremarkable. Bones and soft tissues: No acute bony abnormalities. IMPRESSION: 1. No acute cardiopulmonary abnormalities. Signed by: Dr. Mickey Menon M.D. on 12/21/2018 7:23 PM
[2018-12-21 20:00] VITALS: BP 141/87
== END 2018-12-21 20:15 | disposition home or self-care (01) ==
LOC: FSED 18:14
DX: R50.9 Fever, unspecified (principal); R05 Cough; J20.9 Acute bronchitis, unspecified; J02.9 Acute pharyngitis, unspecified
CPT/HCPCS: 71045; 83518; 87400; 99282